=== PATIENT | male | born 1995 | race Two or more races ===

== ENCOUNTER 2022-02-06 09:42 | Emergency (ER) | payer OTHER ==
[~2022-02-06] VITALS: Ht 180.3 cm; Wt 104.0 kg
[2022-02-06 10:42] VITALS: BP 127/64
[2022-02-06] MEDS ORDERED: AZIT4SOL EACHEYE (11:03)
[2022-02-06] MEDS ORDERED: IBUP800T26 PO (11:03)
== END 2022-02-06 11:07 | disposition home or self-care (01) ==
LOC: ER 09:42
DX: S05.8X2A Other injuries of left eye and orbit, initial encounter (principal); X58.XXXA Exposure to other specified factors, initial encounter; Y93.89 Activity, other specified; Y92.89 Other specified places as the place of occurrence of the external cause; Y99.8 Other external cause status